=== PATIENT | male | born 1965 | race Hispanic/Latino ===

== ENCOUNTER 2021-10-18 12:25 | Outpatient (CLI) | payer OTHER ==
[2021-10-18 15:15] LABS: Hemoglobin 14.6 g/dL (13.5-17.5); Mean Corpuscular HGB CONC 32.9 g/dL (32.0-36.0); Mean Corpuscular Hemoglobin 30.5 pg (27.0-33.0); Mean Corpuscular Volume 92.7 fl (81.2-95.1); Mean Platelet Volume 9.8 fl (7.4-10.4); Platelet Count 297 10x3/uL (150-450); RBC Distribution Width 13.6 % (11.5-14.5); Red Blood Cell (RBC) Count 4.79 10x6/uL (4.32-5.72); White Blood Cell (WBC) Count 11.9 10x3/uL (3.5-10.5)
== END 2021-10-18 12:26 | disposition home or self-care (01) ==
LOC: LABBT 12:25
PROVIDERS: ATTEND Orthopaedic Surgery
DX: Z01.812 Encounter for preprocedural laboratory examination (principal); S72.92XA Unspecified fracture of left femur, initial encounter for closed fracture; Z20.822 Contact with and (suspected) exposure to COVID-19
CPT/HCPCS: 85027; 85652; 86140; 87811

== ENCOUNTER 2021-10-18 12:30 | Inpatient (IN) | payer OTHER ==
[2021-10-19 12:40] VITALS: BMI 28.7
== END 2021-10-21 08:18 | disposition home or self-care (01) | DRG 566 ==
LOC: SURG A 10-21 06:56
PROVIDERS: ADMIT Orthopaedic Surgery; ATTEND Orthopaedic Surgery
DX: S72.32 Transverse fracture of shaft of femur (principal); L30.9 Dermatitis, unspecified; Z20.822 Contact with and (suspected) exposure to COVID-19; I10 Essential (primary) hypertension; V97.0 Occupant of aircraft injured in other specified air transport accidents; Z53.9 Procedure and treatment not carried out, unspecified reason; Z79.899 Other long term (current) drug therapy; Z80.42 Family history of malignant neoplasm of prostate; Z82.49 Family history of ischemic heart disease and other diseases of the circulatory system; Z83.3 Family history of diabetes mellitus; Z87.19 Personal history of other diseases of the digestive system; Z98.890 Other specified postprocedural states

== ENCOUNTER 2021-10-26 12:45 | Inpatient (IN) | payer OTHER ==
[2021-10-28] MEDS ORDERED: fentaNYL Citrate/PF 100 MCG/2 ML SYRINGE ONE (09:15)
[2021-10-28] MEDS ORDERED: Midazolam HCl 2 mg/2 ml Vial ONE (09:15)
[2021-10-28] MEDS ORDERED: Ondansetron PF 4 MG/2 ML Vial IVP PRN (09:22)
[2021-10-28] MEDS ORDERED: traMADol HCl 50 MG TAB PO PRN (09:22)
[2021-10-28] MEDS ORDERED: Morphine 2 MG/ML VIAL SLOW IVP PRN (09:22)
[2021-10-28] MEDS ORDERED: CEFAZOLIN 2 GM VIAL ONE (09:23)
[2021-10-28] MEDS ORDERED: Sodium Chloride 0.9% 100 ML ONE (09:23)
[2021-10-28] MEDS ORDERED: Dexamethasone 20 MG/5 ML VIAL ONE (09:30)
[2021-10-28] MEDS ORDERED: Phenylephrine 10 MG/ML VIAL ONE (09:30)
[2021-10-28] MEDS ORDERED: Rocuronium Bromide 10 MG/ML (10ML VIAL) ONE (09:30)
[2021-10-28] MEDS ORDERED: Ondansetron PF 4 MG/2 ML Vial ONE (09:30)
[2021-10-28] MEDS ORDERED: PROPOFOL 200 MG/20 ML VIAL ONE (09:30)
[2021-10-28] MEDS ORDERED: Communication Order-Pharmacy FS SCH (09:30)
[2021-10-28] MEDS ORDERED: Lidocaine 1% PF 5 ML VIAL ONE (09:30)
[2021-10-28] MEDS ORDERED: HYDROmorphone 2 MG/ML VIAL ONE (10:28)
[2021-10-28] MEDS ORDERED: SUGAMMADEX SODIUM 200 MG/2 ML VIAL ONE (12:31)
[2021-10-28] MEDS ORDERED: Meperidine HCl/PF 25 MG/ML VIAL ONE (12:58)
[2021-10-28] MEDS ORDERED: Fentanyl 100 MCG/2 ML VIAL ONE ×2 (13:21→14:15)
[2021-10-28] MEDS ORDERED: HYDROmorphone 2 MG/ML VIAL SLOW IVP PRN (13:24)
[2021-10-28] MEDS ORDERED: Meperidine HCl/PF 25 MG/ML VIAL SLOW IVP PRN (13:24)
[2021-10-28] MEDS ORDERED: Ondansetron HCl/PF 4 MG/2 ML Vial IVP PRN (13:24)
[2021-10-28] MEDS ORDERED: Promethazine HCl 25 MG/ML VIAL IVPB PRN (13:24)
[2021-10-28] MEDS ORDERED: Promethazine HCl 25 MG/ML VIAL IM PRN (13:24)
[2021-10-28] MEDS ORDERED: Morphine 4 MG/ML VIAL ONE (13:47)
[2021-10-28] MEDS: ceFAZolin 2 GM/Dextrose 50 ML 2 GM in Premix Bag 1 BAG IVPB SCH ×2 (15:13→18:23)
[2021-10-28] MEDS: HYDROcodone/Acetaminophen 10/325 mg Tablet PO PRN ×2 (18:25→22:45)
[2021-10-28] MEDS: CEFAZOLIN 2 GM in Sodium Chloride 0.9% 100 ML IVPB SCH (18:26)
[2021-10-29] MEDS: CEFAZOLIN 2 GM in Sodium Chloride 0.9% 100 ML IVPB SCH (02:28)
[2021-10-29 05:31] LABS: #Lymphocytes 1.4 thou/uL (1.20-3.40); #Monocytes 1.2 thou/uL (0.11-0.59); #Neutrophils 9.2 thou/uL (1.40-6.50); %Basophils 0.1 % (0.0-1.0); %Eosinophils 0.1 % (0.0-10.0); %Lymphocytes 11.7 % (21.0-51.0); %Monocytes 9.9 % (0.0-10.0); %Neutrophils 78.2 % (42.0-75.0); Hemoglobin 12.4 g/dL (14.0-18.0); Mean Corpuscular HGB CONC 32.8 g/dL (32.0-36.0); Mean Corpuscular Hemoglobin 31.8 pg (27.0-31.0); Mean Platelet Volume 6.3 fL (7.4-10.4); Platelet Count 520 thou/uL (130-400); RBC Distribution Width 11.8 % (11.5-14.5); White Blood Cell (WBC) Count 11.8 thou/uL (4.8-10.8)
[2021-10-29] MEDS: HYDROcodone/Acetaminophen 10/325 mg Tablet PO PRN (07:00)
[2021-10-29] MEDS ORDERED: Aspirin 81 mg Enteric Coated Tablet ONE (07:57)
[2021-10-29] MEDS ORDERED: Aspirin 325 mg Enteric Coated Tablet ONE (07:57)
[2021-10-29 08:00] VITALS: BP 148/90; TEMP 98.2
[2021-10-29] MEDS ORDERED: Aspirin 81 mg Enteric Coated Tablet PO SCH (21:00)
== END 2021-10-29 11:57 | disposition home or self-care (01) | DRG 482 ==
LOC: SURG A 10-28 07:28 → EDSTATUS 10-28 12:45 → SURG A 10-28 15:11
PROVIDERS: ADMIT Orthopaedic Surgery; ATTEND Orthopaedic Surgery
PROC: 0QS906Z Reposition Left Femoral Shaft with Intramedullary Internal Fixation Device, Open Approach (ICD-10-PCS; principal; 2021-10-28)
PROC: 0QPC04Z Removal of Internal Fixation Device from Left Lower Femur, Open Approach (ICD-10-PCS; 2021-10-28)
PROC: 30233N1 Transfusion of Nonautologous Red Blood Cells into Peripheral Vein, Percutaneous Approach (ICD-10-PCS; 2021-10-28)
DX: S72.322 Displaced transverse fracture of shaft of left femur (principal); I10 Essential (primary) hypertension; Z20.822 Contact with and (suspected) exposure to COVID-19; Z80.42 Family history of malignant neoplasm of prostate; Z82.49 Family history of ischemic heart disease and other diseases of the circulatory system; Z79.899 Other long term (current) drug therapy
CPT/HCPCS: 36415; 36430; 76000; 85025; 86850; 86900; 86901; 87070; 87076; 87077; 87205; C1713; J0690; J1100; J1170; J2175; J2250; J2270; J2370; J2405; J2704; J3010; J3370; J3490; P9016

== ENCOUNTER 2021-10-26 12:51 | Outpatient (CLI) | payer OTHER ==
[2021-10-26 14:40] LABS: Hemoglobin 14.4 g/dL (13.5-17.5); Mean Corpuscular HGB CONC 33.6 g/dL (32.0-36.0); Mean Corpuscular Volume 92.5 fl (81.2-95.1); Mean Platelet Volume 9.1 fl (7.4-10.4); Platelet Count 558 10x3/uL (150-450); RBC Distribution Width 12.3 % (11.5-14.5); Red Blood Cell (RBC) Count 4.64 10x6/uL (4.32-5.72); White Blood Cell (WBC) Count 8.5 10x3/uL (3.5-10.5)
== END 2021-10-26 12:52 | disposition home or self-care (01) ==
LOC: LABBT 12:51
PROVIDERS: ATTEND Orthopaedic Surgery
DX: Z01.812 Encounter for preprocedural laboratory examination (principal); S72.92XA Unspecified fracture of left femur, initial encounter for closed fracture; Z20.822 Contact with and (suspected) exposure to COVID-19
CPT/HCPCS: 85027; 85652; 86140; 87811

== ENCOUNTER 2022-11-06 12:30 | Day surgery (SDC) | payer OTHER ==
[2022-10-16 10:22] VITALS: BMI 31.0
[2022-11-06] MEDS ORDERED: fentaNYL 50 mcg/mL 1 mL Vial ONE ×6 (13:44→17:22)
[2022-11-06] MEDS ORDERED: Famotidine/PF 20 mg/2ml Vial ONE (13:44)
[2022-11-06] MEDS ORDERED: Sodium Chloride 0.9% 100 ML ONE (13:56)
[2022-11-06] MEDS ORDERED: CEFAZOLIN 2 GM VIAL ONE (13:56)
[2022-11-06] MEDS ORDERED: Ondansetron PF 4 MG/2 ML Vial ONE (14:09)
[2022-11-06] MEDS ORDERED: PROPOFOL 200 MG/20 ML VIAL ONE (14:09)
[2022-11-06] MEDS ORDERED: Dexamethasone 20 MG/5 ML VIAL ONE (14:09)
[2022-11-06] MEDS ORDERED: Ketorolac Tromethamine 30 MG/ML VIAL ONE (14:09)
[2022-11-06] MEDS ORDERED: Metoclopramide HCl 10 MG/2 ML VIAL ONE (14:09)
[2022-11-06] MEDS ORDERED: Lidocaine 1% PF 5 ML VIAL ONE (14:09)
[2022-11-06] MEDS ORDERED: PHENYLEPHRINE-NS 100 MCG/ML 10 ML SYRINGE ONE (14:09)
[2022-11-06] MEDS ORDERED: Meperidine HCl/PF 25 MG/ML VIAL ONE (16:15)
== END 2022-11-06 18:12 | disposition home or self-care (01) ==
LOC: SDC 12:30
PROVIDERS: ATTEND Orthopaedic Surgery
PROC: 0SPS0JZ Removal of Synthetic Substitute from Left Hip Joint, Femoral Surface, Open Approach (ICD-10-PCS; principal; 2022-11-06)
DX: T84.621A Infection and inflammatory reaction due to internal fixation device of left femur, initial encounter (principal); I10 Essential (primary) hypertension; Z79.899 Other long term (current) drug therapy; Y79.2 Prosthetic and other implants, materials and accessory orthopedic devices associated with adverse incidents
CPT/HCPCS: 87070; 87205; J1100; J1885; J2175; J2405; J2704; J2765; J3010; J3490; S0028